=== PATIENT | male | born 1940 | race Caucasian/White ===

== ENCOUNTER 2019-07-27 07:50 | Inpatient (IN) | payer MEDICARE ==
[~2019-07-27] VITALS: Ht 172.7 cm; Wt 64.4 kg
[2019-07-27] VITALS (7 sets, daily range): BP systolic 106–166; BP diastolic 54–75
[2019-07-27] MEDS ORDERED: ROSUVASTATIN CA40 MG PO (08:15)
[2019-07-27] MEDS ORDERED: OMEGA 3-6-9 11200 MG PO (08:17)
[2019-07-27] MEDS ORDERED: ISOSORBIDE30 MG PO (08:18)
[2019-07-27] MEDS ORDERED: PANTOPRAZOLE SO40 MG PO (08:18)
[2019-07-27] MEDS ORDERED: APRESOLINE25 MG PO (08:19)
[2019-07-27] MEDS ORDERED: LASIX80 MG PO (08:20)
[2019-07-27] MEDS ORDERED: PRASUGREL HCL10 MG PO (08:20)
[2019-07-27] MEDS ORDERED: Lopressor25 MG PO (08:20)
[2019-07-27] MEDS ORDERED: POTASSIUM CHLO10 ME5 PO (08:21)
[2019-07-27 10:11] LABS: BODY FLUID WBC 83 /uL
[2019-07-27 10:14] LABS: BODY FLUID WBC 122 /uL
--- NOTE | 2019-07-27 10:51 | NUR ---
Time: 1029 A 79 year old MALE admitted to under services of DR. ESE KEMP MD,[facility]. Pt. arrived via ambulatory from [place]. Chief complaint: PNEUMOTHORAX. HISSOM,FRANCO
--- NOTE | 2019-07-27 10:51 | NUR ---
The assessment has been completed. FRANCO VENEGAS
[2019-07-27 11:17] LABS: BF LYMPHOCYTES 36 %; BF MACROPHAGES 60 %; BF MESOTHELIALS 2 %; BF NEUTROPHILS 2 %
--- NOTE | 2019-07-27 11:52 | NUR ---
IV started right antecubital with #22 protective cath after 1 attempts. Site prepped with Chloroprep. Sterile dressing applied. Patient tolerated procedure well. FRANCO VENEGAS
[2019-07-27 12:03] LABS: BF LYMPHOCYTES 24 %; BF MACROPHAGES 51 %; BF MONOCYTES 22 %; BF NEUTROPHILS 3 %
--- NOTE | 2019-07-27 12:12 | NUR ---
INFORMED DR HENLEY OF NEW CONSULT. NO NEW ORDERS RECIEVED
[2019-07-27 12:14] LABS: BASO % 0.3 % (0.0-1.0); EOS # 0.1 10*3/uL (0.0-0.4); EOS % 0.6 % (1.0-4.0); HEMATOCRIT 45.5 % (42.0-52.0); HEMOGLOBIN 13.7 g/dl (14.0-18.0); LYMPH % 10.9 % (27.0-41.0); MEAN CELL VOLUME 97.8 fl (80.0-94.0); MEAN CORPUSCULAR HGB 29.5 pg (27.0-31.0); MEAN CORPUSCULAR HGB CONC 30.1 g/dl (33.0-37.0); MEAN PLATELET VOLUME 11.9 fl (9.6-12.3); MONO # 0.6 10*3/uL (0.1-1.0); MONO % 6.6 % (3.0-9.0); NEUT # 7.4 10*3/uL (2.3-7.9); NEUT % 81.4 % (47.0-73.0); PLATELET COUNT AUTOMATED 156 10*3/uL (130-400); RED BLOOD COUNT 4.65 10*6/uL (4.50-5.90); RED CELL DISTRI WIDTH 17.1 % (0-14.5); WHITE BLOOD COUNT 9.1 10*3/uL (4.8-10.8)
[2019-07-27 12:26] LABS: CREATININE 5.5 mg/dL (0.70-1.30); POTASSIUM 4.5 mmol/L (3.5-5.1)
--- NOTE | 2019-07-27 12:42 | NUR ---
PT COMPLAINS OF 6/10 SIDE PAIN. MEDICATED PER ORDER. WILL CONTINUE TO MONITOR FOR RELIEF. VOICES NO OTHER CONCERNS AT THIS TIME. RESTING IN BED. CALL LIGHT WITHIN REACH
--- NOTE | 2019-07-27 13:42 | NUR ---
TYLENOL EFFECTIVE PER PT
--- NOTE | 2019-07-27 13:57 | NUR ---
SPOKE WITH DR MULLIGAN REGARDING PTS CHEST XRAY. STATED HE ALREADY SEEN IT AND TO CONTINUE TO MONITOR HIM. IF ANY CHANGES IN CONDITION CALL AND LET HIM KNOW.
--- NOTE | 2019-07-27 14:54 | NUR ---
Occupational Therapy evaluation completed on 5 with full eval to follow. Precautions include fall risk d/t new ww use, oxygen use, IV UE,impaired cognition;orientation, low complexity level 45179 via chart review, testing and evaluation. Recommend return home alone w/ SN, OT,PT home health. Thank you. Rikva Colbert OTR/l
--- NOTE | 2019-07-27 16:53 | NUR ---
SPOKE WITH DR HENLEY ABOUT PATIENT HAVING DIALYSIS TOMORROW. STATED TO CALL DIALYSIS AND LET THEM KNOW HE WILL BE GOING AND TO CALL HER FOR ORDERS.
--- NOTE | 2019-07-27 16:53 | NUR ---
NOTIFIED [facility] ABOUT NEW PT
[2019-07-28] VITALS: BP 150/62
--- NOTE | 2019-07-28 01:46 | NUR ---
24HR CHART CHECK COMPLETED.
[2019-07-28 06:49] LABS: BASO % 0.5 % (0.0-1.0); EOS # 0.1 10*3/uL (0.0-0.4); EOS % 1.5 % (1.0-4.0); HEMATOCRIT 37.5 % (42.0-52.0); HEMOGLOBIN 11.5 g/dl (14.0-18.0); LYMPH # 0.9 10*3/uL (1.3-4.4); LYMPH % 11.6 % (27.0-41.0); MEAN CELL VOLUME 96.4 fl (80.0-94.0); MEAN CORPUSCULAR HGB 29.6 pg (27.0-31.0); MEAN CORPUSCULAR HGB CONC 30.7 g/dl (33.0-37.0); MEAN PLATELET VOLUME 12.4 fl (9.6-12.3); MONO # 0.7 10*3/uL (0.1-1.0); MONO % 9.6 % (3.0-9.0); NEUT # 5.8 10*3/uL (2.3-7.9); NEUT % 76.4 % (47.0-73.0); PLATELET COUNT AUTOMATED 133 10*3/uL (130-400); RED BLOOD COUNT 3.89 10*6/uL (4.50-5.90); RED CELL DISTRI WIDTH 17.1 % (0-14.5); WHITE BLOOD COUNT 7.5 10*3/uL (4.8-10.8)
[2019-07-28 07:21] LABS: ALBUMIN 2.4 gm/dl (3.1-4.5); POTASSIUM 4.4 mmol/L (3.5-5.1)
[2019-07-28 07:25] LABS: CREATININE 6.02 mg/dL (0.70-1.30); TOTAL PROTEIN 5.6 gm/dL (6.4-8.2)
[2019-07-28 08:00] VITALS: BP 160/64
--- NOTE | 2019-07-28 08:10 | NUR ---
MEDICATED WITH PO TYLENOL ORDERED PER PT REQUEST FOR C/O PAIN TO L FLANK RATED 5/10 AND OCCURS WITH INSPIRATION.
--- NOTE | 2019-07-28 11:14 | NUR ---
MEDICATION EFFECIVE FOR HEADACHE.
[2019-07-28 12:00] VITALS: BP 129/57
--- NOTE | 2019-07-28 12:00 | NUR ---
Patient resting quietly with no c/o discomfort. Respirations easy and regular. Vital signs stable. No overt distress. ESTEFANIA SOUZA
--- NOTE | 2019-07-28 14:00 | NUR ---
DR HENLEY QUESTIONING WHY PT CANNOT BE DISCHARGED AFTER DIALYSIS. RN TO ASK LOAD DROPPER.
--- NOTE | 2019-07-28 15:15 | NUR ---
LEGAL COMPLIANCE OFFICER STATES OK TO D/C AFTER DIALYSIS [place] TODAY.
[2019-07-28 16:00] VITALS: BP 130/98; BP 154/63
--- NOTE | 2019-07-28 19:17 | NUR ---
PT BACK FROM DIALYSIS, EATING DINNER. PREPARING FOR D/C. PT CALLED HIS , SHE IS ON HER WAY.
--- NOTE | 2019-07-28 19:30 | NUR ---
PT REFUSING MEDICATIONS AT THIS TIME, STATES THAT HE WILL "TAKE THEM ONCE HE GETS HOME". MISSED MEDICATIONS WRITTEN AND GIVEN TO PATIENT, SO THAT HE IS AWARE OF WHAT TO TAKE.
[2019-07-28 19:31] VITALS: BP 150/80
--- NOTE | 2019-07-28 19:54 | NUR ---
Discharge instructions reviewed with patient/family. Patient receptive and verbalizes understanding. Follow-up care arranged. Written instructions given to patient/family. OPAL ALDANA
== END 2019-07-28 19:54 | disposition home or self-care (01) | DRG 199 ==
LOC: 5E 10:06
PROVIDERS: ADMIT Internal Medicine Critical Care Medicine
DX: J93.9 Pneumothorax, unspecified (principal); N18.6 End stage renal disease; J98.19 Other pulmonary collapse; I13.2 Hypertensive heart and chronic kidney disease with heart failure and with stage 5 chronic kidney disease, or end stage renal disease; I50.42 Chronic combined systolic (congestive) and diastolic (congestive) heart failure; J91.8 Pleural effusion in other conditions classified elsewhere; J44.9 Chronic obstructive pulmonary disease, unspecified; E78.00 Pure hypercholesterolemia, unspecified; K21.9 Gastro-esophageal reflux disease without esophagitis; I25.10 Atherosclerotic heart disease of native coronary artery without angina pectoris; E78.5 Hyperlipidemia, unspecified; F41.1 Generalized anxiety disorder; Z85.118 Personal history of other malignant neoplasm of bronchus and lung; Z79.899 Other long term (current) drug therapy; Z90.2 Acquired absence of lung [part of]; Z85.841 Personal history of malignant neoplasm of brain; D64.9 Anemia, unspecified